=== PATIENT | female | born 1975 | race African-American/Black ===

== ENCOUNTER 2018-06-28 19:49 | Emergency (ER) | payer BC ==
[~2018-06-28] VITALS: Ht 175.3 cm; Wt 77.2 kg
[2018-06-28 20:03] VITALS: Ht 175.3 cm; Wt 77.2 kg
[2018-06-28 22:24] LABS: BASOPHIL % 0.5 % (0-2); PLATELET COUNT 225 x10^3mcL (130-400); RED CELL DISTRIBUTION WIDTH 14.1 % (11.5-14.5)
[2018-06-29 00:03] VITALS: BP 122/57
[2018-06-29 00:35] LABS: UA SPECIFIC GRAVITY >=1.030 (1.005-1.035); microscopic required? YES; urine erythrocyte 3+ (NEGATIVE)
== END 2018-06-29 00:03 | disposition home or self-care (01) ==
LOC: ED 19:49
PROVIDERS: Student in an Organized Health Care Education/Training Program
DX: O20.0 Threatened abortion (principal); D64.9 Anemia, unspecified
CPT/HCPCS: 36415